=== PATIENT | male | born 1985 | race Caucasian/White ===

== ENCOUNTER → 2016-10-02 | Outpatient (CLI) | payer OTHER ==
--- NOTE | 2016-10-02 09:55 | US ---
EXAMINATION TYPE: US kidneys/renal and bladder DATE OF EXAM: 10/02/2016 8:59 AM COMPARISON: NONE CLINICAL HISTORY: M54.5 Low Back pain. Right sided back pain ongoing for months EXAM MEASUREMENTS: Right Kidney: 11.8 x 5.1 x 5.4cm Left Kidney: 11.6 x 5.3 x 5.7cm TECHNOLOGIST IMPRESSION: Right Kidney: wnl Left Kidney: wnl Bladder: not fully distended, wnl Bilateral Jets seen: no There is no evidence for hydronephrosis at this point in time. No nephrolithiasis is seen. No matilda s are identified. The urinary bladder is anechoic. Bladder is not greatly distended but no suspiciou s intraluminal mass is present. Wall thickness is likely upper limits of normal for poorly distended bladder. Bilateral ureteral jets are not seen. IMPRESSION: No significant finding is seen to account for patient's symptoms.
== END | disposition home or self-care (01) ==
LOC: RADUSWWP 08:43
PROVIDERS: ATTEND Family Medicine
DX: M54.5 Low back pain (principal)
CPT/HCPCS: 76770

== ENCOUNTER 2018-03-25 17:05 | Emergency (ER) | payer OTHER ==
[2018-03-25 17:46] VITALS: BP 150/82; PULSE 78; RESP 18; TEMP 98.1
== END 2018-03-25 18:19 | disposition home or self-care (01) ==
LOC: EC 17:05
DX: Z02.9 Encounter for administrative examinations, unspecified (principal)

== ENCOUNTER 2022-03-18 11:03 | Emergency (ER) | payer OTHER ==
[2022-03-18 11:10] VITALS: TEMP 98.2
[2022-03-18] MEDS ORDERED: diphenhydrAMINE 50 MG/ML 1 ML VIAL IVP STA (11:14)
[2022-03-18] MEDS ORDERED: methylPREDNISolone SOD SUCCI 125 MG/2 ML VIAL IV STA (11:14)
[2022-03-18] MEDS ORDERED: FAMOTIDINE 20 MG/2 ML VIAL IV STA (11:14)
--- NOTE | 2022-03-18 12:58 | ED ---
ENT HPI - General Chief complaint: ENT Stated complaint: Allergic Reaction Time Seen by Provider: 03/18/22 11:11 Source: patient Mode of arrival: EMS Limitations: no limitations - History of Present Illness Initial comments: Patient is a 36-year-old male presenting with chief complaint of swollen uvula. Patient states that he woke up with this this morning, he denies any new foods or medications. He denies any shortness of breath. Patient states that he has slight difficulty with swallowing just due to the size, however he is still able to eat and drink. Patient is not drooling no voice changes. He denies any fever, chills, nausea, vomiting, chest pain, shortness of breath, abdominal pain, headache, vision or hearing changes, neck pain or stiffness, cough, URI- like symptoms. - Related Data Previous Rx's Medication Instructions Recorded methylPREDNISolone Dose Pack 4 mg PO DIRECTED #1 packet 03/18/22 [Medrol Dose Pack] Allergies Allergy/AdvReac Type Severity Reaction Status Date / Time No Known Allergies Allergy Verified 03/18/22 11:10 Review of Systems ROS Statement: Those systems with pertinent positive or pertinent negative responses have been documented in the HPI. ROS Other: All systems not noted in ROS Statement are negative. Past Medical History Past Medical History: No Reported History History of Any Multi-Drug Resistant Organisms: None Reported Past Surgical History: No Surgical Hx Reported Past Psychological History: No Psychological Hx Reported Smoking Status: Never smoker Past Alcohol Use History: Occasional Past Drug Use History: None Reported General Exam Limitations: no limitations General appearance: alert, in no apparent distress Head exam: Present: atraumatic, normocephalic, normal inspection Eye exam: Present: normal appearance, EOMI. Absent: scleral icterus, periorbital swelling Expanded Mouth exam: Present: tongue normal. Absent: drooling, trismus, muffled voice Throat exam: other (Swollen uvula). negative: tonsillar erythema, tonsillar exudate Neck exam: Present: normal inspection. Absent: tenderness Respiratory exam: Present: normal lung sounds bilaterally. Absent: respiratory distress, wheezes, rales, rhonchi, stridor Cardiovascular Exam: Present: regular rate, normal rhythm, normal heart sounds. Absent: systolic murmur, diastolic murmur, rubs, gallop, clicks Neurological exam: Present: alert, oriented X3, CN II-XII intact Psychiatric exam: Present: normal affect, normal mood Skin exam: Present: warm, dry, intact, normal color. Absent: rash Course Vital Signs 03/18/22 03/18/22 11:07 13:43 Temperature 98.2 F Pulse Rate 106 H 92 Respiratory 20 18 Rate Blood Pressure 153/109 127/92 O2 Sat by Pulse 96 96 Oximetry Medical Decision Making - Medical Decision Making Patient is a 36-year-old male presenting with chief complaint of swollen uvula. Patient states that he woke up this morning with these symptoms, he denies any shortness of breath or dysphagia. On examination uvula is swollen but airway appears stable. No midline shift. Heart and lungs are clear to auscultation. Patient is given Benadryl, Pepcid, Solu-Medrol. He is negative for group A strep. On repeat assessment swelling has improved. Patient will be sent home with Medrol Dosepak. Instructed to take Benadryl as needed. Follow-up with PCP in one to 2 days. Report back to ER if any new or worsening symptoms. Discussed return parameters and answered all questions. Patient conveyed verbal understanding and agreed to the plan. I discussed this case with my attending Dr. Reid - Lab Data Lab Results 03/18/22 Range/Units 13:00 Group A Strep (PCR) NOT DETECTED (Not Detectd) Disposition Clinical Impression: Uvulitis Disposition: HOME SELF-CARE Condition: Good Instructions (If sedation given, give patient instructions): Uvulitis (ED) Additional Instructions: Follow-up with PCP in one to 2 days. Report back to ER with any new or worsening symptoms. Take medication as prescribed. Do not abruptly discontinue steroids, he must finish the entire package per the package instructions. Take Benadryl as needed. Prescriptions: methylPREDNISolone Dose Pack [Medrol Dose Pack] 4 mg PO DIRECTED #1 packet Is patient prescribed a controlled substance at d/c from ED?: No Referrals: Eugene Zaman MD [Primary Care Provider] - 1-2 days
[2022-03-18 13:43] VITALS: BP 127/92; PULSE 92; RESP 18
== END 2022-03-18 14:45 | disposition home or self-care (01) ==
LOC: EC 11:03
DX: K12.2 Cellulitis and abscess of mouth (principal)
CPT/HCPCS: 87651; 99284; 96374; 96375; J1200; J2930

== ENCOUNTER 2023-01-19 12:21 | Emergency (ER) | payer OTHER ==
[2023-01-19 12:25] VITALS: BP 161/93; TEMP 97.7
[2023-01-19] MEDS ORDERED: KETOROLAC 15 MG/ML 1 ML VIAL IVP STA (12:33)
[2023-01-19] MEDS ORDERED: METOCLOPRAMIDE 5 MG/ML 2 ML VIAL IVP STA (12:33)
[2023-01-19] MEDS ORDERED: DEXAMETHASONE SOD PHOSPHATE 10 MG/ML 1 ML VIAL IVP STA (12:33)
[2023-01-19] MEDS ORDERED: SODIUM CHLORIDE 0.9% 1,000 ML IV STA (12:33)
[2023-01-19] MEDS ORDERED: diphenhydrAMINE 50 MG/ML 1 ML VIAL IVP STA (12:33)
--- NOTE | 2023-01-19 12:53 | ED ---
Headache HPI - General Chief Complaint: Headache Stated Complaint: Headache Time Seen by Provider: 01/19/23 12:28 Source: patient, family, RN notes reviewed Mode of arrival: ambulatory Limitations: no limitations - History of Present Illness Initial Comments: This is a 37-year-old male who presents to the emergency department for a right- sided headache. Patient states that this started shortly after he woke up this morning. Describes this as a right sided pressure sensation. His states that he has had problems with his sinuses before, however this seems different, as he has never had headaches like this and the patient has not been acting like himself. His states that he seems more quiet and is acting like he is in pain, which is not normal for him when he has headaches. He would not describe this as the worst headache of his life. He took ibuprofen and aspirin with only minor relief in symptoms. He has minor photophobia. Denies any nausea or vomiting. Denies any fevers, chills, sore throat, cough, dyspnea, chest pain, palpitations, abdominal pain, nausea, vomiting, or diarrhea. MD Complaint: headache - Related Data Previous Rx's Medication Instructions Recorded methylPREDNISolone Dose Pack 4 mg PO DIRECTED #1 packet 03/18/22 [Medrol Dose Pack] Amoxic-Pot Clav 875-125Mg 1 tab PO Q12HR 7 Days #14 tab 01/19/23 [Augmentin 875-125] predniSONE 50 mg PO DAILY 5 Days #5 tab 01/19/23 Allergies Allergy/AdvReac Type Severity Reaction Status Date / Time No Known Allergies Allergy Verified 01/19/23 12:25 Review of Systems ROS Statement: Those systems with pertinent positive or pertinent negative responses have been documented in the HPI. ROS Other: All systems not noted in ROS Statement are negative. Past Medical History Past Medical History: No Reported History History of Any Multi-Drug Resistant Organisms: None Reported Past Surgical History: No Surgical Hx Reported Past Psychological History: No Psychological Hx Reported Smoking Status: Never smoker Past Alcohol Use History: Occasional Past Drug Use History: None Reported General Exam Limitations: no limitations General appearance: alert, in no apparent distress Head exam: Present: atraumatic, normocephalic, normal inspection Eye exam: Present: normal appearance, PERRL, EOMI. Absent: scleral icterus, conjunctival injection, periorbital swelling ENT exam: Present: other (Tenderness to palpation over the right maxillary sinuses and temporal region.) Respiratory exam: Present: normal lung sounds bilaterally. Absent: respiratory distress, wheezes, rales, rhonchi, stridor Cardiovascular Exam: Present: regular rate, normal rhythm, normal heart sounds. Absent: systolic murmur, diastolic murmur, rubs, gallop, clicks Neurological exam: Present: alert, oriented X3, CN II-XII intact Psychiatric exam: Present: normal affect, normal mood Skin exam: Present: warm, dry, intact, normal color. Absent: rash Course Vital Signs 01/19/23 01/19/23 12:23 15:11 Temperature 97.7 F Pulse Rate 114 H 92 Respiratory 20 16 Rate Blood Pressure 161/93 O2 Sat by Pulse 99 97 Oximetry Medical Decision Making - Medical Decision Making This is a 37-year-old male who presents to the emergency department for a headache. Was pt. sent in by a medical professional or institution? @ -No Did you speak to anyone other than the patient for history? @ -No Did you review nursing and triage notes? @ -Yes, and I agree, it is accurate with regards to the patient's symptoms. Were old charts reviewed? @ -No Differential Diagnosis? @ -Differential Headache: Migraine, tension, cluster, carbon monoxide, central venous thrombosis, pension karma temporal arteritis, acute closure glaucoma, intercranial hemorrhage, mastoiditis, sinusitis, head injury, this is not meant to be an all-inclusive list. EKG interpreted by me (3pts min.)? @ -Not obtained X-rays interpreted by me (1pt min.)? @ -Not obtained CT interpreted by me (1pt min.)? @ -Computed tomography scan of the brain and CTA of the head obtained. My interpretation identifies no evidence of ischemic changes, intracranial hemorrhage, or aneurysms. U/S interpreted by me (1pt. min.)? @ -Not obtained What testing was considered but not performed? (CT, X-rays, U/S, labs)? Why? @ -None What meds were considered but not given? Why? @ -None Did you discuss the management of the patient with other professionals? @ -No Did you reconcile home meds? @ -No Was smoking cessation discussed for >3mins.? @ -No Was critical care preformed (if so, how long)? @ -No Were there social determinants of health that impacted care today? How? (Homele ssness, low income, unemployed, alcoholism, drug addiction, transportation, low edu. Level, literacy, decrease access to med. care, longterm, rehab)? @ -No Was there de-escalation of care discussed even if they declined? (Discuss DNR or withdrawal of care, Hospice)? @ -No What co-morbidities impacted this encounter? (DM, HTN, Smoking, COPD, CAD, Cancer, CVA, Hep., AIDS, mental health diagnosis, sleep apnea, morbid obesity)? @ -None Was patient admitted / discharged? @ -Discharged. Lab work obtained and found to be nonactionable. Given that he denies any significant history of headaches and because this felt different than ones that he has had before, computed tomography scan of the brain and CTA of the head were obtained. This revealed severe right-sided sinusitis, which he has been diagnosed with before. He has never seen an ear nose and throat provider. He was given a migraine cocktail consisting of IV fluids, Decadron, Toradol, Benadryl, and Reglan, with notable relief in his headache. Will treat the patient for sinusitis and a prescription for Augmentin and prednisone was provided with dosing instructions reviewed. Information for ENT follow-up provided. He is instructed to contact them for a follow-up appointment and further evaluation of the recurrent sinusitis. Undiagnosed new problem with uncertain prognosis? @ -None Drug Therapy requiring intensive monitoring for toxicity (Heparin, Nitro, Insulin, Cardizem)? @ -None Were any procedures done? @ -None Diagnosis/symptom? @ -Right maxillary sinusitis Acute, or Chronic, or Acute on Chronic? @ -Acute Uncomplicated (without systemic symptoms) or Complicated (systemic symptoms)? @ -Uncomplicated Side effects of treatment? @ -None Exacerbation, Progression, or Severe Exacerbation] @ -Not applicable Poses a threat to life or bodily function? @ -No Return precautions reviewed in depth, the patient is instructed to return to the emergency department with any new, worsening, or concerning symptoms. Patient verbalized understanding. This case was discussed in detail with the attending ED physician, Dr. Reid. Presentation, findings, and treatment plan discussed in detail as well. - Lab Data Result diagrams: 01/19/23 12:40 01/19/23 12:40 Lab Results 01/19/23 01/19/23 01/19/23 Range/Units 12:40 12:40 12:40 WBC 6.2 (3.8-10.6) k/uL RBC 4.83 (4.30-5.90) m/uL Hgb 14.3 (13.0-17.5) gm/dL Hct 41.3 (39.0-53.0) % MCV 85.5 (80.0-100.0) fL MCH 29.6 (25.0-35.0) pg MCHC 34.6 (31.0-37.0) g/dL RDW 12.6 (11.5-15.5) % Plt Count 238 (150-450) k/uL MPV 6.6 Neutrophils % 79 % Lymphocytes % 12 % Monocytes % 6 % Eosinophils % 1 % Basophils % 0 % Neutrophils # 4.9 (1.3-7.7) k/uL Lymphocytes # 0.8 L (1.0-4.8) k/uL Monocytes # 0.4 (0-1.0) k/uL Eosinophils # 0.1 (0-0.7) k/uL Basophils # 0.0 (0-0.2) k/uL Sodium 138 (137-145) mmol/L Potassium 4.0 (3.5-5.1) mmol/L Chloride 101 (98-107) mmol/L Carbon Dioxide 25 (22-30) mmol/L Anion Gap 12 mmol/L BUN 10 (9-20) mg/dL Creatinine 0.64 L (0.66-1.25) mg/dL Est GFR (CKD-EPI)AfAm >90 (>60 ml/min/1.73 sqM) Est GFR (CKD-EPI)NonAf >90 (>60 ml/min/1.73 sqM) Glucose 108 H (74-99) mg/dL Calcium 9.3 (8.4-10.2) mg/dL Total Bilirubin 1.0 (0.2-1.3) mg/dL AST 27 (17-59) U/L ALT 31 (4-49) U/L Alkaline Phosphatase 91 (38-126) U/L C-Reactive Protein <0.5 (<1.0) mg/dL Total Protein 7.8 (6.3-8.2) g/dL Albumin 4.7 (3.5-5.0) g/dL Influenza Type A (PCR) Not Detected (Not Detectd) Influenza Type B (PCR) Not Detected (Not Detectd) RSV (PCR) Not Detected (Not Detectd) SARS-CoV-2 (PCR) Not Detected (Not Detectd) - Radiology Data Radiology results: report reviewed, image reviewed Disposition Clinical Impression: Right maxillary sinusitis Disposition: HOME SELF-CARE Instructions (If sedation given, give patient instructions): Sinusitis (ED) Additional Instructions: Return to the emergency department with any new, worsening, or concerning s ymptoms. Take the antibiotic as prescribed for 7 days and take the steroid daily for 5 days. Contact ENT as listed below for a follow-up appointment and reevaluation of the chronic sinusitis. I have listed two different offices so that you can see which one can get you in the fastest. Follow up with your primary care provider in 1-2 days. Prescriptions: Amoxic-Pot Clav 875-125Mg [Augmentin 875-125] 1 tab PO Q12HR 7 Days #14 tab predniSONE 50 mg PO DAILY 5 Days #5 tab Is patient prescribed a controlled substance at d/c from ED?: No Referrals: Eugene Zaman MD [Primary Care Provider] - 1-2 days Gutierrez Harden MD [STAFF PHYSICIAN] - 1-2 days Breezy Spear MD [STAFF PHYSICIAN] - 1-2 days
[2023-01-19 12:57] LABS: Basophils % (A) 0 %; Eosinophils # (A) 0.1 k/uL (0-0.7); Eosinophils % (A) 1 %; HCT 41.3 % (39.0-53.0); HGB 14.3 gm/dL (13.0-17.5); Lymphocytes # (A) 0.8 k/uL (1.0-4.8); Lymphocytes % (A) 12 %; MCH 29.6 pg (25.0-35.0); MCHC 34.6 g/dL (31.0-37.0); MCV 85.5 fL (80.0-100.0); Mean Platelet Volume 6.6; Monocytes # (A) 0.4 k/uL (0-1.0); Monocytes % (A) 6 %; Neutrophils # (A) 4.9 k/uL (1.3-7.7); Neutrophils % (A) 79 %; Platelet Count 238 k/uL (150-450); RBC 4.83 m/uL (4.30-5.90); RDW 12.6 % (11.5-15.5); WBC 6.2 k/uL (3.8-10.6)
[2023-01-19 13:37] LABS: ALT 31 U/L (4-49); AST 27 U/L (17-59); African American GFR (CKD) >90 (>60 ml/min/1.73 sqM); Albumin 4.7 g/dL (3.5-5.0); Alkaline Phosphatase 91 U/L (38-126); Anion Gap 12 mmol/L; Blood Urea Nitrogen 10 mg/dL (9-20); Calcium 9.3 mg/dL (8.4-10.2); Carbon Dioxide 25 mmol/L (22-30); Chloride 101 mmol/L (98-107); Glucose 108 mg/dL (74-99); Non-African American GFR(CKD) >90 (>60 ml/min/1.73 sqM); Sodium 138 mmol/L (137-145); Total Protein 7.8 g/dL (6.3-8.2)
--- NOTE | 2023-01-19 13:41 | CT ---
EXAMINATION TYPE: CT brain wo con DATE OF EXAM: 01/19/2023 COMPARISON: HISTORY: Right sided headache, change in behavior CT DLP: 1206.[address] of the brain was performed. The ventricles, basal cisterns and sulci overlying the cerebral convexities demonstrate a normal appe arance. There is no evidence for intracranial hemorrhage or sulcal effacement. No mass effects are seen. Osseous calvarium is intact. If symptoms persist consider MRI as clinically warranted. Pansinusitis changes near complete opacifi cation right maxillary sinus. IMPRESSION: 1. No acute intracranial process is seen at this time. 2. Chronic pansinusitis.
--- NOTE | 2023-01-19 13:46 | CT ---
EXAMINATION TYPE: CT angio head DATE OF EXAM: 01/19/2023 COMPARISON: None HISTORY: Right sided headache, change in behavior CT DLP: 750.6 mGycm CONTRAST: CTA washoe of [place] with 3-D reconstruction is performed and with IV Contrast, patient injected with 75 mL of Isovue 370. Contrast CTA of the [place]hoe of [place] was performed 3-D reconstruction imaging obtained at a separate workstation. Vertebrobasilar system as well as intracranial portions of the internal carotid arterie s and their major tributaries are patent. I do not see evidence for sizable aneurysm or vascular mal formation. Please note MRI provides greater sensitivity and specificity. Visualized brain appears g rossly unremarkable. IMPRESSION: No evidence for sizable aneurysm or vascular malformation.
[2023-01-19 13:49] LABS: C Reactive Protein <0.5 mg/dL (<1.0)
[2023-01-19 15:13] VITALS: PULSE 92; RESP 16
== END 2023-01-19 15:12 | disposition home or self-care (01) ==
LOC: EC 12:21
DX: J32.4 Chronic pansinusitis (principal); Z20.822 Contact with and (suspected) exposure to COVID-19
CPT/HCPCS: 36415; 80053; 85025; 86140; 87636; 70496; 70450; 99284; 96374; 96375 ×3; 96361 ×2; J1200; J1100; J2765; J1885; Q9967

== ENCOUNTER → 2023-03-13 | Outpatient (CLI) | payer OTHER ==
--- NOTE | 2023-03-14 18:35 | CT ---
EXAMINATION TYPE: CT sinus wo con CT DLP: 641.60 mGycm, Automated exposure control for dose reduction was used. DATE OF EXAM: 03/13/2023 4:25 PM COMPARISON: CT brain 01/19/2023. CLINICAL INDICATION:Male, 37 years old with history of J32.0 CHRONIC MAXILLARY SINUSITIS; PHH, CHRONI C MAXILLARY SINUSITIS CONTRAST: None. TECHNIQUE: Multiple thin axial images were obtained through the paranasal sinuses without the use of IV contrast. Additional coronal and sagittal reformatted images were submitted for evaluation. FINDINGS: Frontal sinuses: Near complete opacification of the right frontal sinus. The left frontal sinus is cl ear. There is opacification of the right frontal recess. Maxillary Sinuses: Likely mucous retention cyst within the inferior left maxillary sinus measuring up to 2.3 cm. Complete opacification of the right maxillary sinus with surrounding wall thickening and internal high density. There is abutment of the right and 2 premolars. Maxillary Infundibula([facility]): Left is clear. Complete opacification of the right, . Ethmoid sinuses: Minimal mucosal thickening of the left posterior ethmoid sinus. Near-complete opacif ication of the anterior right ethmoid sinus. Ethmoidal notch: Supraorbital pneumatization is identifi ed. Sphenoid sinuses: Normally developed and aerated. There is sphenoid sinus pneumatization without evid ence of dehiscence. No dehiscence of carotid canal. No evidence of optic nerve dehiscence within the sphenoid sinus. Sphenoethmoidal recesses: Clear. Nasal septum: Moderately deviated to the right.. Nasal Turbinates: Complete opacification of the right middle turbinate. Mastoid air cells & middle ears: The air cells are clear. The middle ears are grossly unremarkable. Modified Soft tissues & Brain: Partially seen without gross abnormality. Globes are intact. Other: Cribriform plate demonstrates symmetric Keros classification type 1 cribriform plate. No evidence of bony dehiscence of skull base. Lamina papyracea is intact without evidence of remote orbital fracture or orbital prolapse into the e thmoid sinus. IMPRESSION: 1. Moderate mucosal paranasal sinus disease involving the right frontal sinus, right ethmoid sinus, a nd right maxillary sinus. Associated wall thickening of the maxillary sinus and high-density material indicating chronic sinusitis. Additional likely mucous retention cyst within the inferior left maxil stacy sinus. 2. Complete opacification of the right ostiomeatal complex, and right frontal recess.
== END | disposition home or self-care (01) ==
LOC: RADCTMAIN 03-07 16:18
PROVIDERS: ATTEND Otolaryngology
DX: J32.0 Chronic maxillary sinusitis (principal); J34.89 Other specified disorders of nose and nasal sinuses
CPT/HCPCS: 70486

== ENCOUNTER → 2023-07-22 | Outpatient (CLI) | payer OTHER ==
--- NOTE | 2023-07-23 10:12 | CA ---
Transthoracic Echo Report Name: Simon Tovar Age: 37 Gender: M : 1985 Exam Date: 07/22/2023 17:46 Exam Location: [place] Echo Ht (in): 76 Wt (lb): 240 Ordering Physician: Eugene Zaman MD Attending/Referring Phys: Eugene Zaman MD Ambulance Driver Magalis Peralta [facility] Procedure CPT: Indications: R07.9 CHEST PAIN, UNSPECIFIED,Z87.79,I51.7 Cardiac Hx: Technical Quality: Fair Contrast 1: Total Dose (mL): Contrast 2: Total Dose (mL): MEASUREMENTS (Male / Female) Normal Values 2D ECHO LV Diastolic Diameter PLAX 5.5 cm 4.2 - 5.9 / 3.9 - 5.3 cm LV Systolic Diameter PLAX 4.1 cm IVS Diastolic Thickness 1.0 cm 0.6 - 1.0 / 0.6 - 0.9 cm LVPW Diastolic Thickness 1.0 cm 0.6 - 1.0 / 0.6 - 0.9 cm LV Relative Wall Thickness 0.3 LVOT Diameter 2.0 cm Ascending Aorta Diameter 3.5 cm M-MODE Aortic Root Diameter MM 3.0 cm LA Systolic Diameter MM 4.1 cm LA Ao Ratio MM 1.4 AV Cusp Separation MM 2.7 cm DOPPLER AV Peak Velocity 119.8 cm/s AV Peak Gradient 5.7 mmHg AV Mean Velocity 93.5 cm/s AV Mean Gradient 3.8 mmHg AV Velocity Time Integral 23.3 cm LVOT Peak Velocity 96.3 cm/s LVOT Peak Gradient 3.7 mmHg LVOT Velocity Time Integral 16.3 cm LVOT Stroke Volume 52.2 cm??? LVOT Stroke Volume Index 21.8 ml/m??? LVOT Cardiac Index 1866.2 cm???/min???m??? AV Area Cont Eq vti 2.2 cm??? AV Area Cont Eq pk 2.6 cm??? Mitral E Point Velocity 59.2 cm/s Mitral A Point Velocity 56.1 cm/s Mitral E to A Ratio 1.1 MV Deceleration Time 217.4 ms LV E' Lateral Velocity 8.2 cm/s Mitral E to LV E' Lateral Ratio 7.2 LV E' Septal Velocity 7.0 cm/s Mitral E to LV E' Septal Ratio 8.4 Right Atrial Pressure 3.0 mmHg FINDINGS Left Ventricle Left ventricular wall thickness at upper limits of normal. Left ventricular cavity size normal. Low normal left ventricular systolic function with no obvious regional wall motion abnormalities. Left ventricular ejection fraction is estimated at 50-55%. Right Ventricle Right ventricle at upper limits of normal. Right Atrium Normal right atrial size. Left Atrium Normal left atrial size. Mitral Valve Structurally normal mitral valve. Trace mitral regurgitation. Aortic Valve Trileaflet aortic valve. Trace aortic regurgitation. Tricuspid Valve Structurally normal tricuspid valve. No tricuspid regurgitation. Pulmonic Valve Structurally normal pulmonic valve. Trace pulmonic regurgitation. Pericardium Minimal pericardial effusion (normal variant). Aorta Normal size aortic root and proximal ascending aorta. CONCLUSIONS Normal LV systolic function Previewed by: Dr. Luis E Hargrove MD (Electronically Signed) Final Date: 23 July 2023 10:11
== END | disposition home or self-care (01) ==
LOC: RADECHMAIN 17:34
PROVIDERS: ATTEND Pediatrics
DX: R07.9 Chest pain, unspecified (principal); I51.7 Cardiomegaly; R94.31 Abnormal electrocardiogram [ECG] [EKG]; Z82.79 Family history of other congenital malformations, deformations and chromosomal abnormalities
CPT/HCPCS: 93306

== ENCOUNTER → 2023-10-04 | Outpatient (CLI) | payer OTHER ==
--- NOTE | 2023-10-04 20:04 | CT ---
EXAMINATION TYPE: CT sinus wo con CT DLP: 746.1 mGycm, Automated exposure control for dose reduction was used. DATE OF EXAM: 10/04/2023 4:48 PM COMPARISON: 03/13/2023. CLINICAL INDICATION:Male, 37 years old with history of J32.0 CHRONIC SINUSITIS; , SINUS PROBLEMS SINC E 01/08, PRIOR ON PACS TECHNIQUE: Multiple thin axial images were obtained through the paranasal sinuses without the use of IV contrast. Additional coronal and sagittal reformatted images were submitted for evaluation. Contrast used: none Oral contrast used: none FINDINGS: There is mucosal thickening of the frontal sinus right greater than left. The frontonasal recesses ar e opacified bilaterally. There is opacification of the maxillary sinuses left greater than right. The ethmoid air cells are mostly opacified, right greater left. The sphenoid sinuses and straight mild m ucosal thickening. The ostiomeatal units bilaterally are opacified. The sphenoethmoidal recesses are partially opacified. No dehiscence of carotid canal. No evidence of optic nerve dehiscence within the sphenoid sinus. There is no evidence of fracture. Intracranial structures are within normal limits g iven technique. The orbits and globes are intact. Nasal septum: Mucosal thickening bilaterally. Nasal Turbinates: Mucosal thickening bilaterally. Mastoid air cells & middle ears: The air cells are clear. The middle ears are grossly unremarkable. Modified Soft tissues & Brain: Partially seen without gross abnormality. Globes are intact. Other: Cribriform plate demonstrates symmetric Keros classification type 2 cribriform plate. No evidence of bony dehiscence of skull base. Lamina papyracea is intact without evidence of remote orbital fracture or orbital prolapse into the e thmoid sinus. IMPRESSION: Interval worsening of the paranasal sinuses with near complete opacification of the maxillary sinuses and ethmoid air cells. The ostiomeatal units, frontonasal are opacified and the sphenoethmoidal rece sses are partially opacified
== END | disposition home or self-care (01) ==
LOC: RADCTMAIN 16:36
PROVIDERS: ATTEND Otolaryngology
DX: J34.89 Other specified disorders of nose and nasal sinuses (principal); J32.0 Chronic maxillary sinusitis
CPT/HCPCS: 70486